=== PATIENT | female | born 1935 | race Caucasian/White ===

== ENCOUNTER 2016-09-17 23:50 | Emergency (ER) | payer MEDICARE ==
--- NOTE | ~2016-09-17 | HP ---
History And Physical [facility] [address] [place]. [address] NAME: PARRIS VERMA : 34 STATUS : REG ER PAT#: [id number] AGE: 81 ADM/REG DATE : 09/17/16 MR#: [id number] REPORT SERV DATE: 09/18/16 DICTATED BY: MERLY NAGEL DATE: 09/18/16 REPORT STATUS : Draft TRANSCRIBED BY: MODBrittany DATE: 09/18/16 DATE OF ADMISSION: 09/17/2016 POINT OF ENTRY: [facility] Emergency Department. CHIEF COMPLAINT: Cough, wheezing, and shortness of breath. HISTORY OF PRESENT ILLNESS: Ms. Verma is an 81-year-old female with a history of asthma, gastroesophageal reflux disease, hypertension, hyperlipidemia, hypothyroidism, and a previous history of tobacco abuse, who presents to the emergency department today with a three-week history of persistent nonproductive cough with associated shortness of breath and wheezing. The patient states that she has been told that she had asthma in the past, has also recently been told that she has COPD. Does have a former history of tobacco abuse. For the past 3 weeks, she has had a very persistent dry hacking cough with associated shortness of breath, as well as occasional wheezing. She states that she feels congested but is unable to bring up any sputum or phlegm. Denies any fevers, night sweats, or chills. She has been seen at [facility] Emergency Department two times during these past three weeks where chest x-ray has been unremarkable, has been given steroids and antibiotics without any significant improvement. She also has been referred for an outpatient CT scan of the chest, which reportedly was unremarkable. However, I do not have the actual detailed records. She also has been given prescription for nocturnal oxygen by her primary care physician during this three-week time course. Despite all of these treatments including home bronchodilators, home oxygen, antibiotics, and steroids as well as symptomatic medications for cough, the patient's symptoms are not improved, therefore, she is presented to the emergency department. Initial evaluation in the emergency department was notable for a white count of 12,400. Flu swab is pending as is her chest x-ray. Remainder of her labs otherwise unremarkable. The patient was subsequently admitted to the Hospitalist Service for further evaluation and management. REVIEW OF SYSTEMS: Comprehensive review of systems otherwise negative unless listed in the history of present illness. PREVIOUS MEDICAL HISTORY: 1. Asthma. 2. Presumptive diagnosis of COPD. 3. Gastroesophageal reflux disease. 4. Hypertension. 5. Hyperlipidemia. 6. History of transient ischemic attack. 7. Mitral prolapse. History And Physical [address] [address] NAME: PARRIS VERMA : 34 STATUS : REG ER PAT#: [id number] AGE: 81 ADM/REG DATE : 09/17/16 MR#: [id number] REPORT SERV DATE: 09/18/16 DICTATED BY: MERLY NAGEL DATE: 09/18/16 REPORT STATUS : Draft TRANSCRIBED BY: JUANCARLOS DATE: 09/18/16 8. Hypothyroidism. 9. Restless legs. 10.Peripheral neuropathy. 11.History of Bidom-Xnkwbbpkt-Xewzc. SURGICAL HISTORY: 1. Right total knee. 2. Left shoulder. 3. Left carotid endarterectomy. 4. Appendectomy. 5. Cholecystectomy. 6. Abdominal hysterectomy. 7. Partial colectomy. 8. Ex-lap with lysis of adhesions for recent small-bowel obstruction. ALLERGIES: CODEINE, ASPIRIN, AND PROMETHAZINE. HOME MEDICATIONS: Pending at the time of dictation but does include Tessalon Perles, lisinopril, as well as Advair and Proventil. SOCIAL HISTORY: Former smoker. Has about a 40 pack-year history. Denies alcohol. Denies illicits. FAMILY MEDICAL HISTORY: Mother with coronary disease. Father of old age. LABS AND IMAGIN. White count 12.4, hemoglobin 15.4, hematocrit 45.1, and platelet count is . 2. Sodium is 140, potassium 3.9, chloride 100, carbon dioxide 27, BUN 13, creatinine 1.2, glucose is , and calcium is 9.6. 3. Lactic acid 1.7. 4. Flu swab is pending. 5. Chest x-ray is pending. PHYSICAL EXAMINATION: VITAL SIGNS: Temperature is 98.6 degrees Fahrenheit, pulse is 105, respirations 20, saturating 95% on room air, and blood pressure is 134/62. GENERAL: The patient is awake, alert, in no acute distress. Resting comfortably in bed. She is a well-developed, well-nourished, female. is at bedside. HEENT: Atraumatic and normocephalic. Moist mucous membranes. Pupils are equal, round, reactive to light and accommodation. Extraocular movement is intact. No scleral icterus. NECK: No jugular venous distention. No carotid bruits. CARDIAC: Regular rate and rhythm. No murmurs, rubs, or gallops. Normal S1, normal S2. LUNGS: The patient is frequently coughing during my exam but is not bringing anything up. She is in no distress. Speaking in full sentences. I do appreciate some very mild wheezes in all lung durand. ABDOMEN: Obese, soft, nontender, nondistended with good bowel sounds. No rebound, guarding, or rigidity. History And Physical [address] [address] NAME: PARRIS VERMA : 34 STATUS : REG ER PAT#: [id number] AGE: 81 ADM/REG DATE : 09/17/16 MR#: [id number] REPORT SERV DATE: 09/18/16 DICTATED BY: MERLY NAGEL DATE: 09/18/16 REPORT STATUS : Draft TRANSCRIBED BY: JUANCARLOS DATE: 09/18/16 EXTREMITIES: Warm, perfused. No cyanosis, clubbing, or edema. SKIN: Warm and dry. PSYCH: Affect appropriate. NEURO: Alert and oriented x3. Cranial nerves 2 through 12 grossly intact. Speech is normal. Gait not assessed. ASSESSMENT: Ms. Verma is an 81-year-old female, who presents with three-week history of persistent dry cough with associated shortness of breath and wheezing consistent with a presumed acute bronchitis versus chronic obstructive pulmonary disease exacerbation. Dry persistent cough, also concerning for possible DARIAN inhibitor induced cough. PROBLEM LIST: 1. Acute bronchitis versus acute COPD exacerbation. 2. Chronic cough. 3. Leukocytosis. PLAN: 1. Acute bronchitis versus acute COPD exacerbation. We will treat supportively with antibiotics, steroids, bronchodilators, as well as antitussive medications and pulmonary toilet. We will try to obtain sputum culture. It is concerning that patient seems to have had two rounds of antibiotics and steroids as an outpatient without any significant improvement. We will try to obtain outside CT scan of the chest records that she has had recently. If she does not improve, she may require pulmonology consultation. 2. Cough. The patient has now had a primarily dry cough for the past three weeks without significant improvement despite antitussive medications, bronchodilators, steroids, and antibiotics. She is on lisinopril. We will hold this to see if that does have any improvement. Also another trial of bronchitis and COPD treatments as well as antitussive medications. We also need to obtain outside CT chest records. 3. Leukocytosis likely steroid induced from recent steroid exposure. Follow up chest x- ray as well as urinalysis. Blood cultures have been ordered, we will need to follow those up. 4. DVT prophylaxis. Lovenox subcu. CODE STATUS: The patient wished to be full code. JCB/MODL Merly Nagel MD / [id number] CC: Lawrence Marte
--- NOTE | ~2016-09-17 | DS ---
Discharge Summary [facility] [address] [place]. [address] NAME: PARRIS MUHAMMAD : 34 STATUS : DIS IN PAT#: [id number] AGE: 81 ADM/REG DATE : 09/18/16 MR#: [id number] REPORT SERV DATE: 09/20/16 DICTATED BY: JR. BENSON WILLIAM JOHN DATE: 09/19/16 REPORT STATUS : Draft TRANSCRIBED BY: JUANCARLOS DATE: 09/19/16 ADMISSION DATE: 09/18/2016 DISCHARGE DATE: 09/19/2016 DISCHARGE DIAGNOSES: Include: 1. Acute exacerbation of chronic obstructive pulmonary disease. 2. Hypertension. 3. Dyslipidemia. 4. Gastroesophageal reflux disease. OPERATIONS, PROCEDURES, AND TREATMENTS: Include: 1. Chest x-ray done 09/18/2016, which showed no acute cardiopulmonary process. 2. Blood cultures x2 done 09/17/2016 and 09/18/2016, which were sterile. DISCHARGE MEDICATIONS: Include: 1. Elavil 50 mg orally p.r.n. sleep. 2. Tessalon Perles 100 mg orally every eight hours as needed. 3. Plavix 75 mg orally daily. 4. Bentyl 10 mg orally twice a day. 5. Guaifenesin 600 mg orally twice a day. 6. Synthroid 50 mcg orally daily. 7. Lisinopril 10 mg orally twice a day. 8. Prilosec 20 mg orally daily. 9. Lyrica 100 mg orally twice a day. 10.Maxzide 37.5/25 one-half tablet orally daily. 11.Brovana 15 mcg inhaled twice a day via nebulizer. 12.Albuterol high-flow aerosol one puff every eight hours as needed. 13.Pulmicort Respules 0.5 mg nebulized twice a day via nebulizer. 14.DuoNeb nebulized every four hours. 15.Estradiol 20 mg/mL giving 40 mg intramuscularly every four weeks. 16.Prednisone 40 mg orally daily for three days, then 20 for three days, then 10 for three days, then none. 17.Levaquin 750 mg every morning on 09/20 09/21 and 09/21/2016. HOSPITAL COURSE: The patient was an 81-year-old white female with a history of asthma/COPD, who presented to the emergency room on 09/17/2016, with complaint of 3-week history of persistent nonproductive cough and shortness of breath. She had previously been told she had asthma and more recently COPD for the past three weeks. She had a persistent dry hacky cough associated with shortness of breath and occasional wheezing. She felt congestion and unable to produce sputum. She denied fevers, chills, or night sweats. For initial history, physical, and presenting data, please see Dr. Bravo's excellent dictated history and physical. The patient was admitted to the Clinical Decision Unit for exacerbation of reactive airway disease. She was placed on IV steroids, inhaled bronchodilator, anticholinergic, and Discharge Summary [address] [address] NAME: PARRIS MUHAMMAD : 34 STATUS : DIS IN PAT#: [id number] AGE: 81 ADM/REG DATE : 09/18/16 MR#: [id number] REPORT SERV DATE: 09/20/16 DICTATED BY: JR. BENSON WILLIAM JOHN DATE: 09/19/16 REPORT STATUS : Draft TRANSCRIBED BY: JUANCARLOS DATE: 09/19/16 steroid medication as well as IV steroids and empiric antibiotics. The patient improved dramatically. She was off oxygen and not short of breath by 09/19/2016. The patient was able to ambulate. The family who was with her said that she is dramatically better, and the patient desired discharge home. Her steroids will be changed to a prednisone taper over 9 days. She will complete a five-day course of Levaquin. She is being given prescriptions for the nebulized medications. The patient lives alone, but has family next door and is checked on often. There were no concerns about her safety. The remainder of the patient's health problems remained stable and were not addressed during this hospitalization. For discharge exam and laboratory, please see daily progress note. DISCHARGE DIET: Regular. ACTIVITY: As tolerated. This discharge took 32 minutes for patient encounter, coordination of care, and documentation. MARCO A/JUANCARLOS Colt Benson Jr, MD / [id number] CC: Moo Rivera M.D.
[~2016-09-17 23:50] MED LIST: ALTACE10 MG PO; AMIT50 PO; ATV.5 PO; ATV1 PO; BISR PR; BYSTOLIC10 MG PO; COREG12 PO; DELESTROGEN40 MG/ML IM; HORMONE INJECTION; HORMONE SHOT; HYDROCHLOROT12.5 MG PO; KLONO1 PO; LEVOTHYROXIN25 MCG PO; LIPITOR10 PO; LYRICA100 MG PO; MAX25 PO; NORV5 PO; PCET; PLAVIX PO; PRILO PO; PRIN10 PO; PROTONIX PO; REFRESH OPH SO0.3 ML OPH; T PO; TUMSROLL PO; ZOL50 PO
[2016-09-18 00:36] LABS: HEMOGLOBIN 15.4 g/dL (12.0-16.0); MEAN CORPUS HGB CONC 34.1 g/dL (32.0-36.0); MEAN CORPUSCULAR HEMOGLOB 33.4 pg (26.0-34.0); MEAN CORPUSCULAR VOLUME 97.8 fL (80-100); MEAN PLATELET VOLUME 11.4 fL (9.2-13.0); RBC DISTRIBUTION WIDTH 12.9 % (12.0-16.0); RED CELL COUNT 4.61 10/6/uL (4.0-5.6); WHITE BLOOD CELLS 12.4 10/3/uL (4.5-10.5)
[2016-09-18 00:37] LABS: HEMATOCRIT 45.1 % (36.0-48.0); PLATELET COUNT 199 10/3/uL (150-400)
[2016-09-18 00:51] LABS: BUN (BLOOD UREA NITROGEN) 13 MG/DL (6-23); CHLORIDE, SERUM 100 MMOL/L (96-112); CO2 (CARBON DIOXIDE) 27 MMOL/L (24-34); CREATININE 1.21 MG/DL (0.55-1.02); GFR AFRICAN AMERICAN 48 ML/MIN (>=60); GFR NON AFRICAN AMERICAN 42 ML/MIN (>=60); GLUCOSE, SERUM 109 MG/DL (60-99); POTASSIUM, SERUM 3.9 MMOL/L (3.5-5.3); SODIUM, SERUM 140 MMOL/L (135-148)
[2016-09-18 00:52] LABS: CALCIUM, SERUM 9.6 MG/DL (8.5-10.4); DIRECT BILIRUBIN 0.2 MG/DL (0.0-0.4); INDIRECT BILIRUBIN(NOT ORDER) 0.4 MG/DL (0.1-0.9); TOTAL BILIRUBIN 0.6 MG/DL (0-1.2)
[2016-09-18 00:54] LABS: LACTATE 1.7 MMOL/L (0.3-2.4)
[2016-09-18 01:29] LABS: DIFFERENTIAL ORDERED YES
[2016-09-18 01:31] LABS: BAND NEUTROPHILS 4 %; LYMPHOCYTES 16 %; LYMPHOCYTES ABSOLUTE (CALC) 1.98 10/3/uL (0.67-4.30); MONOCYTES 1 %; MONOCYTES ABSOLUTE (CALC) 0.12 10/3/uL (0.21-1.20); NEUTROPHILS ABSOLUTE (CALC) 10.29 10/3/uL (2.02-8.40); SEGMENTED NEUTROPHIL (0) 79 %; TOTAL NUCLEATED CELLS 100
[2016-09-18 04:46] LABS: INFLUENZA A SCREEN NEGATIVE (NEGATIVE); INFLUENZA B SCREEN NEGATIVE (NEGATIVE)
[2016-09-18 06:09] LABS: ASCORBIC ACID (UR NOT ORDER) NEG (NEG); BILIRUBIN, URINE NEGATIVE (NEG); ER URINALYSIS TAT 0 Hrs 16 Mins; KETONE, URINE NEGATIVE (NEG); LEUKOCYTE ESTERASE(NOT OR NEG (NEG); NITRITE (URINE) NEG (NEG); WBC (NOT ORDERED) (RFLEX) 1 (0-5)
[2016-09-18] MEDS ORDERED: LEVOTHYROXIN50 MCG PO (09:52)
[2016-09-18] MEDS ORDERED: PLAVIX PO (09:53)
[2016-09-18] MEDS ORDERED: PRILO PO (09:53)
[2016-09-18] MEDS ORDERED: AMIT50 PO (09:54)
[2016-09-18] MEDS ORDERED: BENTYL10 PO (09:55)
[2016-09-18] MEDS ORDERED: K250 PO (09:56)
[2016-09-18] MEDS ORDERED: MAX25 PO (09:57)
[2016-09-18] MEDS ORDERED: LYRICA100 MG PO (09:57)
[2016-09-18] MEDS ORDERED: PRIN10 PO (09:57)
[2016-09-18] MEDS ORDERED: TESS PO (09:58)
[2016-09-18] MEDS ORDERED: Z-PAK PO (09:59)
[2016-09-18] MEDS ORDERED: ADVAIR INH (09:59)
[2016-09-18] MEDS ORDERED: VENTOLIN HFA INH (10:00)
[2016-09-18] MEDS ORDERED: DUONEB INH (10:09)
[2016-09-18] MEDS ORDERED: DELESTROGE IM (10:10)
[2016-09-19 04:56] LABS: BASOPHILS 0.1 %; BASOPHILS ABSOLUTE 0.01 10/3/uL (0.0-0.16); EOSINOPHILS 0 %; HEMOGLOBIN 13.6 g/dL (12.0-16.0); IMMATURE GRANULOCYTES 0.2 %; IMMATURE GRANULOCYTES ABSOLUTE 0.02 10/3/uL (0.0-0.11); LYMPHOCYTES ABSOLUTE 0.55 10/3/uL (0.67-4.30); MEAN CORPUSCULAR HEMOGLOB 33.3 pg (26.0-34.0); MEAN CORPUSCULAR VOLUME 97.8 fL (80-100); MONOCYTES 2.9 %; MONOCYTES ABSOLUTE 0.26 10/3/uL (0.21-1.20); NEUTROPHILS 90.8 %; NEUTROPHILS ABSOLUTE 8.27 10/3/uL (2.02-8.40); PLATELET COUNT 190 10/3/uL (150-400); RBC DISTRIBUTION WIDTH 12.9 % (12.0-16.0); RED CELL COUNT 4.09 10/6/uL (4.0-5.6); WHITE BLOOD CELLS 9.1 10/3/uL (4.5-10.5)
[2016-09-19 05:01] LABS: MANUAL DIFF NO %
[2016-09-19 05:06] LABS: ALBUMIN 2.7 G/DL (3.5-5.0); CALCIUM, SERUM 9.2 MG/DL (8.5-10.4); CHLORIDE, SERUM 100 MMOL/L (96-112); CO2 (CARBON DIOXIDE) 26 MMOL/L (24-34); CREATININE 1.39 MG/DL (0.55-1.02); GFR AFRICAN AMERICAN 41 ML/MIN (>=60); GFR NON AFRICAN AMERICAN 35 ML/MIN (>=60); PHOSPHORUS, SERUM 2.8 MG/DL (2.5-4.5); SODIUM, SERUM 139 MMOL/L (135-148)
[2016-09-19 05:08] LABS: BUN (BLOOD UREA NITROGEN) 19 MG/DL (6-23); GLUCOSE, SERUM 214 MG/DL (60-99)
[2016-09-19] MEDS ORDERED: BROVANA INH (09:42)
[2016-09-19] MEDS ORDERED: LEVAQUIN750 MG PO (09:42)
[2016-09-19] MEDS ORDERED: PULRESP.5 INH (09:43)
[2016-09-19] MEDS ORDERED: P10 PO (09:46)
[2016-09-19] MEDS ORDERED: HUMI PO (09:48)
== END 2016-09-19 10:25 | disposition home or self-care (01) ==
LOC: ER 23:50
PROVIDERS: Emergency Medicine; Internal Medicine
DX: J44.9 Chronic obstructive pulmonary disease, unspecified (principal); J45.909 Unspecified asthma, uncomplicated; I10 Essential (primary) hypertension; K21.9 Gastro-esophageal reflux disease without esophagitis; Z86.73 Personal history of transient ischemic attack (TIA), and cerebral infarction without residual deficits; Z87.891 Personal history of nicotine dependence; Z88.5 Allergy status to narcotic agent; Z88.6 Allergy status to analgesic agent; Z88.8 Allergy status to other drugs, medicaments and biological substances
CPT/HCPCS: 71010; 80048; 80069; 81001; 82247; 82248; 83605; 85007; 85025; 85027; 87040; 87804; 93005; 94640; 99291; A9270-GY; J1956; J2405; J2930